=== PATIENT | male | born 1990 | race Caucasian/White ===

== ENCOUNTER 2019-08-20 10:38 | Inpatient (IN) | payer OTHER ==
[~2019-08-20] VITALS: Ht 177.8 cm; Wt 72.3 kg
[~2019-08-20 10:38] MED LIST: ADDERALL XR20 MG PO; LAMICTAL ODT50 MG PO; TRAZODONE50 MG PO; XANAX1 MG PO
[2019-08-20 10:41] VITALS: BP 112/49
[2019-08-20 11:03] LABS: BASO % 0.5 % (0.0-1.0); EOS % 0.7 % (1.0-4.0); HEMATOCRIT 46.3 % (42.0-52.0); HEMOGLOBIN 15.2 g/dl (14.0-18.0); LYMPH # 1.3 10*3/uL (1.3-4.4); LYMPH % 22.1 % (27.0-41.0); MEAN CELL VOLUME 96.5 fl (80.0-94.0); MEAN CORPUSCULAR HGB 31.7 pg (27.0-31.0); MEAN CORPUSCULAR HGB CONC 32.8 g/dl (33.0-37.0); MEAN PLATELET VOLUME 9.1 fl (9.6-12.3); MONO # 0.5 10*3/uL (0.1-1.0); NEUT % 67.5 % (47.0-73.0); PLATELET COUNT AUTOMATED 301 10*3/uL (130-400); RED CELL DISTRI WIDTH 12.5 % (0-14.5)
[2019-08-20 11:15] LABS: BILIRUBIN NEGATIVE (NEGATIVE); BLOOD NEGATIVE (NEGATIVE); CLARITY SL CLOUDY (CLEAR); COLOR YELLOW (YELLOW); GLUCOSE NEGATIVE (NEGATIVE); KETONE 2+ (NEGATIVE); LEUKO ESTERASE NEGATIVE (NEGATIVE); NITRITE NEGATIVE (NEGATIVE); PH 8.5 (5.0-9.0); UROBILINOGEN 0.2 E.U./dl (0.2-1.0)
[2019-08-20 11:16] LABS: ALBUMIN 3.9 gm/dl (3.1-4.5); ALKALINE PHOSPHATASE 78 U/L (45-117); BUN 14 mg/dl (7-24); CHLORIDE 104 mmol/L (98-107); CREATININE 0.83 mg/dL (0.70-1.30); POTASSIUM 4.3 mmol/L (3.5-5.1); SGOT/AST 31 IU/L (3-35); SGPT/ALT 101 U/L (12-78); SODIUM 137 mmol/L (136-145); TOTAL PROTEIN 7.6 gm/dL (6.4-8.2)
[2019-08-20 11:20] LABS: ACETAMINOPHEN (TYLENOL) < 5.0 ug/ml (10-30); ETHYL ALCOHOL < 3.0 mg/dl (<3)
[2019-08-20 11:24] LABS: URINE AMPHETAMINES < 1000 (1000ng/ml); URINE BARBITURATES < 200 (200ng/ml); URINE BENZODIAZEPINES > 200 (200ng/ml); URINE CANNABINOIDS (THC) > 50 (50ng/ml); URINE COCAINE < 300 (300ng/ml); URINE METHADONE < 300 (300ng/ml); URINE OPIATES < 300 (300ng/ml)
[2019-08-20 11:25] LABS: URINE PHENCYCLIDINE < 25 (25ng/ml)
[2019-08-20 11:26] LABS: RBC 0-2 rbc/hpf (0-2); WBC 0-2 wbc/hpf (0-5)
[2019-08-20 11:48] VITALS: BP 116/52
[2019-08-20 11:54] VITALS: BP 112/48
[2019-08-20 12:34] LABS: LIPASE 59 U/L (73-393)
[2019-08-20] MEDS ORDERED: DEXTROAMPH SACC20 M1 PO (13:13)
[2019-08-20] MEDS ORDERED: ADDERALL 20 MG20 MG PO (14:31)
[2019-08-20 16:00] VITALS: BP 105/40
[2019-08-20 20:00] VITALS: BP 99/37
[2019-08-21] VITALS: BP 104/62
[2019-08-21 08:00] VITALS: BP 118/46
[2019-08-21 16:00] VITALS: BP 118/52
[2019-08-21 20:00] VITALS: BP 119/55
[2019-08-22] VITALS: BP 115/51
[2019-08-22 08:00] VITALS: BP 84/55
[2019-08-22 10:09] VITALS: BP 112/56
[2019-08-22 12:00] VITALS: BP 110/44
[2019-08-22 16:00] VITALS: BP 129/64
[2019-08-22 20:00] VITALS: BP 145/55
[2019-08-23] VITALS: BP 114/49
[2019-08-23 08:00] VITALS: BP 111/40
== END 2019-08-23 09:52 | disposition home or self-care (01) | DRG 773 ==
LOC: ED 10:38 → EDHOLD 11:17 → 4E 11:17
PROVIDERS: Internal Medicine; Nurse Practitioner Family; ADMIT Internal Medicine
DX: F11.23 Opioid dependence with withdrawal (principal); F31.9 Bipolar disorder, unspecified; R82.4 Acetonuria; F19.10 Other psychoactive substance abuse, uncomplicated; F17.210 Nicotine dependence, cigarettes, uncomplicated; F41.1 Generalized anxiety disorder; F90.9 Attention-deficit hyperactivity disorder, unspecified type; Z83.3 Family history of diabetes mellitus; Z80.8 Family history of malignant neoplasm of other organs or systems; F41.9 Anxiety disorder, unspecified; R73.9 Hyperglycemia, unspecified; Z71.6 Tobacco abuse counseling

== ENCOUNTER 2025-02-05 18:15 | Emergency (ER) | payer OTHER ==
[~2025-02-05 18:15] MED LIST changes: +ADDERALL 20 MG20 MG PO; +DEXTROAMPH SACC20 M1 PO
[2025-02-05 19:07] LABS: BILIRUBIN Negative (Negative); BLOOD Negative (Negative); CLARITY Clear (Clear); COLOR Yellow (Yellow); GLUCOSE Negative (Negative); KETONE 1+ (Negative); LEUKO ESTERASE Negative (Negative); NITRITE Negative (Negative); SPECIFIC GRAVITY 1.025 (1.001-1.030)
[2025-02-05 19:07] LABS: BASO # 0.1 10*3/uL (0.0-0.1); BASO % 0.8 % (0.0-1.0); EOS % 0.4 % (1.0-4.0); HEMATOCRIT 40.1 % (42.0-52.0); MEAN CELL VOLUME 92.8 fl (80.0-94.0); MEAN CORPUSCULAR HGB 31.3 pg (27.0-31.0); MEAN CORPUSCULAR HGB CONC 33.7 g/dl (33.0-37.0); MEAN PLATELET VOLUME 9.2 fl (9.6-12.3); MONO % 9.9 % (3.0-9.0); NEUT % 72.2 % (47.0-73.0); PLATELET COUNT AUTOMATED 336 10*3/uL (130-400); RED BLOOD COUNT 4.32 10*6/uL (4.50-5.90); RED CELL DISTRI WIDTH 12.5 % (0-14.5); WHITE BLOOD COUNT 9.7 10*3/uL (4.8-10.8)
[2025-02-05 19:13] LABS: URINE AMPHETAMINES Positive (1000ng/ml); URINE BARBITURATES Negative (200ng/ml); URINE BENZODIAZEPINES Positive (200ng/ml); URINE CANNABINOIDS (THC) Positive (50ng/ml); URINE COCAINE Positive (300ng/ml); URINE METHADONE Negative (300ng/ml); URINE OPIATES Negative (300ng/ml); URINE PHENCYCLIDINE Negative (25ng/ml)
[2025-02-05 19:14] LABS: MUCOUS 3+
[2025-02-05 19:28] LABS: ALKALINE PHOSPHATASE 86 U/L (46-116); BUN 17 mg/dl (9-23); CHLORIDE 105 mmol/L (98-107); CPK 398 U/L (34-171); ETHYL ALCOHOL < 3.0 mg/dl (<3); POTASSIUM 3.7 mmol/L (3.4-5.1); SGPT/ALT 34 U/L (5-49); TOTAL PROTEIN 7.4 gm/dL (6.0-8.0)
[2025-02-05] MEDS ORDERED: SODIUM CHLORIDE 0.9% 1,000 ML IV ONE (19:40)
== END 2025-02-06 01:55 ==
LOC: ED 18:15
PROVIDERS: Nurse Practitioner Family
DX: F29 Unspecified psychosis not due to a substance or known physiological condition (principal); F19.10 Other psychoactive substance abuse, uncomplicated; F31.9 Bipolar disorder, unspecified; F41.9 Anxiety disorder, unspecified; Z79.899 Other long term (current) drug therapy